=== PATIENT | male | born 1985 | race Two or more races ===

== ENCOUNTER → 2024-04-19 | Outpatient (CLI) | payer BC, SELFPAY ==
--- NOTE | 2024-04-19 15:30 | XR_ITS ---
Examination: CT lumbar spine, without contrast. 2-D sagittal reconstructions. 2-D coronal reconstructions. 3-D reconstructions. Date and time of exam:April 19, 2024 1343 hours INDICATIONS: Lower back pain beginning 2 months ago CTDI: vol (mGy):19.2 DLP: (mGycm):647 Technique: Multiple 1.25 mm axial sections of the lumbar spine without intravenous contrast have been obtained. 2-D sagittal and coronal reconstructions have been obtained. 3-D reconstructions have been obtained. Low dose protocols were performed. One or more of the following dose reduction techniques were used; automated exposure control, adjustment of the mA and/or KV according to patient size, use of iterative reconstruction technique. Findings: Transpedicular lumbar fusion L5-S1 with anatomic alignment Lumbar pedicles laminated transverse and posterior spinous processes intact L4-L5 3 mm left paracentral subarticular osteophyte disc complex Remaining disc levels unremarkable IMPRESSION: No lumbar fracture Lumbar fusion L5-S1 with anatomic alignment L4-L5 small lumbar disc bulge
== END | disposition home or self-care (01) ==
PROVIDERS: PCP Internal Medicine; Referring Provider Internal Medicine; Visit Provider Internal Medicine
DX: M43.27 Fusion of spine, lumbosacral region (principal); M51.369 Other intervertebral disc degeneration, lumbar region without mention of lumbar back pain or lower extremity pain
CPT/HCPCS: 72131

== ENCOUNTER → 2024-05-14 | Outpatient (CLI) | payer BC, SELFPAY ==
--- NOTE | 2024-05-14 15:00 | XR_ITS ---
Examination: MRI abdomen, without contrast Date and time of exam: May 14, 2024 1549 hours INDICATIONS: Left lower abdominal pain beginning July 2022 Technique: Multiple axial sagittal and coronal images of the abdomen have been obtained with the Siemens high-resolution 1.5 [place] MRI scanner. Images obtained include T2-weighted fat-suppressed sagittal sections, TR 3500, TE 46, T2 weighted coronal fat suppressed images, TR 3050, TE 84, T2-weighted transverse fat suppressed images, TR 3260, TE 63, proton density transverse images, TR 4720 TE 46, and T1 weighted coronal images, TR 560, TE 13. Findings: Hepatomegaly 17 cm no focal liver lesions or intrahepatic biliary tract dilatation No gallstones Normal common hepatic common bile duct No pancreatic mass or peripancreatic edema Negative for splenomegaly No ascites No hydronephrosis Aorta normal size No abdominal lymphadenopathy IMPRESSION: Moderate hepatomegaly, no focal liver lesions or intrahepatic biliary tract dilatation Normal common hepatic common bile ducts Negative for pancreatic mass or peripancreatic edema No ascites
== END | disposition home or self-care (01) ==
PROVIDERS: PCP Internal Medicine; Referring Provider Internal Medicine; Visit Provider Internal Medicine
DX: R16.0 Hepatomegaly, not elsewhere classified (principal)
CPT/HCPCS: 74181

== ENCOUNTER → 2024-06-29 | Outpatient (CLI) | payer BC, MEDICAID, SELFPAY ==
--- NOTE | 2024-06-29 12:45 | XR_ITS ---
Examination: MRI pelvis, without contrast Date and time of exam: June 29, 2024 1115 hrs. Indications: Onset left lower pelvic pain beginning 2 years ago worse the last 6 months Technique: Multiple axial sagittal and coronal images of the pelvis have been obtained with the Siemens high-resolution 1.5 [place] MRI scanner. Images obtained include T2-weighted fat-suppressed sagittal sections, TR 3500, TE 46, T2 weighted coronal fat suppressed images, TR 3050, TE 84, T2-weighted transverse fat suppressed images, TR 3260, TE 63, proton density transverse images, TR 4720 TE 46, and T1 weighted coronal images, TR 560, TE 13. Findings: Magnetic susceptibility artifact sacrum secondary to transpedicular fixation screws No common iliac and external iliac or common femoral lymphadenopathy Normal seminal vesicles Normal size prostate No bladder mass No free fluid in the pelvis No localized thickening of the [place] of the rectosigmoid or rectum No presacral mass Homogeneous marrow signal Impression: No pelvic mass identified Consider repeat CT scan abdomen pelvis post intravenous contrast follow-up
== END | disposition home or self-care (01) ==
LOC: SMRI 11:31
PROVIDERS: PCP Physician Assistant Medical; Referring Provider Physician Assistant Medical; Visit Provider Physician Assistant Medical
DX: R10.2 Pelvic and perineal pain (principal)
CPT/HCPCS: 72195

== ENCOUNTER → 2024-12-23 | Outpatient (CLI) | payer BC, SELFPAY ==
--- NOTE | 2024-12-23 09:45 | XR_ITS ---
Examination: MRI abdomen with intravenous contrast TECHNIQUE: Multiple coronal axial MR images postintravenous administration 19 cc gadolinium Date and time: December 23, 2024 1052 hours INDICATIONS: Moderate hepatomegaly, fatty infiltration throughout the liver on MRI abdomen without contrast May 14, 2024 FINDINGS: Liver 16 cm, no intra or extrahepatic biliary tract dilatation No enhancing liver lesions. No gallstones. No pancreatic mass or peripancreatic edema Common bile duct 4 mm Aorta normal size No adenopathy. No ascites No renal or ureteral calculi IMPRESSION: No focal liver lesions No intra or extra hepatic biliary tract dilatation. No pancreatic mass. No abdominal lymphadenopathy. Negative for ascites
== END | disposition home or self-care (01) ==
LOC: SMRI 09:33
PROVIDERS: PCP Physician Assistant Medical; Referring Provider Internal Medicine Gastroenterology; Visit Provider Internal Medicine Gastroenterology
DX: R16.0 Hepatomegaly, not elsewhere classified (principal); K64.8 Other hemorrhoids
CPT/HCPCS: 74182; A9577